=== PATIENT | male | born 1950 | race Caucasian/White ===

== ENCOUNTER → 2016-10-07 | Outpatient (REF) | payer BC ==
[2016-10-07 14:01] LABS: MEAN CORPUSCULAR HEMOGLOBIN 32.8 pg (27.0-33.0); MEAN CORPUSCULAR HGB CONC 33.5 g/dl (32.0-36.5); MEAN CORPUSCULAR VOLUME 97.8 fl (80.0-96.0); RED CELL DISTRIBUTION WIDTH 12.8 % (11.5-14.5); WHITE BLOOD COUNT 6.4 K/mm3 (4.0-10.0)
[2016-10-07 14:11] LABS: ALBUMIN 3.7 GM/DL (3.2-5.2); ALBUMIN/GLOBULIN RATIO 1.23 (1.00-1.93); ALKALINE PHOSPHATASE 55 U/L (45-117); ALT/SGPT 32 U/L (12-78); ANION GAP 7 MEQ/L (8-16); AST/SGOT 16 U/L (15-37); BILIRUBIN,TOTAL 1.5 MG/DL (0.2-1.0); BLOOD UREA NITROGEN 14 MG/DL (7-18); CALCIUM LEVEL 8.9 MG/DL (8.8-10.2); CARBON DIOXIDE LEVEL 28 MEQ/L (21-32); CHLORIDE LEVEL 106 MEQ/L (98-107); CHOLESTEROL LEVEL 160 MG/DL (<200); CREATININE FOR GFR 0.93 MG/DL (0.70-1.30); GLOMERULAR FILTRATION RATE > 60.0 (>49); GLUCOSE, FASTING 98 MG/DL (80-110); POTASSIUM SERUM 4.4 MEQ/L (3.5-5.1); SODIUM LEVEL 141 MEQ/L (136-145); TOTAL PROTEIN 6.7 GM/DL (6.4-8.2); TRIGLYCERIDES LEVEL 114 MG/DL (<150)
== END ==
LOC: M LABDRAW1 13:10
PROVIDERS: ATTEND Nurse Practitioner Family
DX: I10 Essential (primary) hypertension (principal); E78.00 Pure hypercholesterolemia, unspecified; R73.9 Hyperglycemia, unspecified

== ENCOUNTER → 2016-11-03 | Outpatient (CLI) | payer BC | LOC: M WUC 09:54 | PROVIDERS: ATTEND Physician Assistant | DX: M25.511 Pain in right shoulder (principal) ==

== ENCOUNTER → 2017-09-21 | Outpatient (REF) | payer BC ==
[2017-09-21 16:19] LABS: BASO # 0.1 10^3/uL (0.0-0.2); BASO % 0.7 % (0.0-1.0); EOS # 0.2 10^3/uL (0.0-0.50); EOS % 2.7 % (0.0-3.0); HEMATOCRIT 46.4 % (42.0-52.0); HEMOGLOBIN 15.8 g/dl (13.5-17.5); IMMATURE GRANULOCYTE % 0.3 % (0-3.0); LYMPH # 1.9 10^3/uL (1.5-4.5); LYMPH % 27.4 % (24.0-44.0); MEAN CORPUSCULAR HEMOGLOBIN 31.4 pg (27.0-33.0); MEAN CORPUSCULAR HGB CONC 34.1 g/dl (32.0-36.5); MEAN CORPUSCULAR VOLUME 92.2 fl (80.0-96.0); MONO # 0.6 10^3/uL (0.0-0.8); MONO % 9.2 % (0.0-5.0); NEUTROPHILS # 4.1 10^3/uL (1.8-7.7); NEUTROPHILS % 59.7 % (36.0-66.0); PLATELET COUNT, AUTOMATED 150 10^3/uL (150-450); RED BLOOD COUNT 5.03 10^6/uL (4.30-6.10); WHITE BLOOD COUNT 6.9 10^3/uL (4.0-10.0)
[2017-09-21 17:06] LABS: ALBUMIN 3.5 GM/DL (3.2-5.2); ALBUMIN/GLOBULIN RATIO 1.09 (1.00-1.93); ALKALINE PHOSPHATASE 62 U/L (45-117); ALT/SGPT 29 U/L (12-78); ANION GAP 10 MEQ/L (8-16); AST/SGOT 13 U/L (7-37); BLOOD UREA NITROGEN 15 MG/DL (7-18); C REACTIVE PROTEIN QUANTITATIV 0.38 MG/DL (0.00-0.30); CALCIUM LEVEL 8.6 MG/DL (8.8-10.2); CARBON DIOXIDE LEVEL 23 MEQ/L (21-32); CHLORIDE LEVEL 108 MEQ/L (98-107); CHOLESTEROL LEVEL 165 MG/DL (<200); GLOMERULAR FILTRATION RATE > 60.0 (>49); GLUCOSE, FASTING 126 MG/DL (70-100); HDL CHOLESTEROL 44 MG/DL (>40); LDL CHOLESTEROL 63.6 MG/DL (<100); NON-HDL-C 121 MG/DL; POTASSIUM SERUM 3.9 MEQ/L (3.5-5.1); SODIUM LEVEL 141 MEQ/L (136-145); TOTAL PROTEIN 6.7 GM/DL (6.4-8.2); TRIGLYCERIDES LEVEL 287 MG/DL (<150)
== END ==
LOC: M LABDRAW1 14:55
DX: R06.00 Dyspnea, unspecified (principal); E66.9 Obesity, unspecified; R07.1 Chest pain on breathing
CPT/HCPCS: 80053

== ENCOUNTER → 2018-12-29 | Outpatient (CLI) | payer BC ==
--- NOTE | 2018-12-29 12:28 | ECHO ---
OUTPATIENT ECHOCARDIOGRAPHIC REPORT: DATE OF PROCEDURE: 12/29/2018 DATE OF : 1950 AGE: 68 GENDER: Male HEIGHT: 70 inches WEIGHT: 225 pounds BODY SURFACE AREA: 2.19 m2 OUTPATIENT: REFERRING PHYSICIAN: Dr. Jace Gabriel INDICATION: Murmur. MEASUREMENTS: 2-D Measurements: RV: 3.1 cm LV: 4.9 cm Septum: 1.2 cm Posterior wall: 1.1 cm Aortic root: 3.3 cm LA: 4.2 cm LVEF: 65% Doppler Measurements: AV: 2.53 m/s LVOT: 1.38 m/s Mean AV systolic gradient: 13 mmHg Dimensionless index: 0.5 MV: E 86, A 60, EA ratio 1.4 Early mitral deceleration time: 169 ms E prime: 8.1, A prime: 7.1, E/E prime ratio: 10.6 PCWP: 14.4 mmHg PV: 0.8 m/s Pulmonary artery acceleration time: 130 ms RVSP: 26 mmHg IVC: 2.0 cm with adequate respiratory collapse COMMENTS: Normal sinus rhythm with right bundle branch block. M-mode and two-dimensional echocardiography was performed with pulsed, continuous wave, color flow and tissue Doppler studies. Normal left ventricular size with wall thickness upper limits of normal and normal wall motion. Slightly dilated left atrium but currently normal Doppler assessment of LV diastolic function and estimated mean left atrial pressure. Normal right heart chamber sizes and motion with normal pulmonary arterial pressure. Normal IVC size and collapse against an elevated central venous pressure. Moderate aortic valvular sclerosis with no more than marginal stenosis and mild insufficiency. Normal aortic dimensions. Normal appearing mitral valvular apparatus and leaflet excursion with no posterior systolic buckling. No significant functional abnormality. Normal appearing tricuspid valve with trace insufficiency. No apparent intracardiac mass or pericardial effusion.
== END ==
LOC: M CARPUL 09:01
PROVIDERS: ATTEND Surgery
DX: R01.1 Cardiac murmur, unspecified (principal)

== ENCOUNTER 2022-07-07 09:52 | Observation (INO) | payer BC, MEDICARE ==
[~2022-07-07] VITALS: Ht 177.8 cm; Wt 100.7 kg
[2022-07-07] MEDS ORDERED: FLUT11IN INH (10:00)
[2022-07-07] MEDS ORDERED: PRAV40TA2 PO (10:00)
[2022-07-07] MEDS ORDERED: ALBU8.5H INH (10:00)
[2022-07-07] MEDS ORDERED: OXYB-54 PO (10:00)
[2022-07-07] MEDS ORDERED: IRBE150T7 PO (10:00)
[2022-07-07 10:49] LABS: BASO # 0.1 10^3/uL (0.0-0.2); BASO % 0.7 % (0.0-1.0); EOS # 0.2 10^3/uL (0.0-0.5); EOS % 2.6 % (0.0-3.0); HEMATOCRIT 44.8 % (42.0-52.0); HEMOGLOBIN 15.2 g/dl (13.5-17.5); LYMPH # 1.6 10^3/uL (1.5-5.0); MEAN CORPUSCULAR HEMOGLOBIN 31.9 pg (27.0-33.0); MEAN CORPUSCULAR HGB CONC 33.9 g/dl (32.0-36.5); MEAN CORPUSCULAR VOLUME 94.1 fl (80.0-96.0); MONO # 0.8 10^3/uL (0.0-0.8); MONO % 11.5 % (2.0-8.0); NEUTROPHILS # 4.4 10^3/uL (1.5-8.5); NEUTROPHILS % 61.8 % (36.0-66.0); PLATELET COUNT, AUTOMATED 137 10^3/uL (150-450); RED BLOOD COUNT 4.76 10^6/uL (4.30-6.10); WHITE BLOOD COUNT 7.1 10^3/uL (4.0-10.0)
[2022-07-07 11:05] LABS: INR 0.95; PARTIAL THROMBOPLASTIN TIME 27.4 SECONDS (24.8-34.2); PROTHROMBIN TIME 12.9 SECONDS (12.5-14.5)
[2022-07-07 11:13] LABS: LIPASE 39 U/L (12-53)
[2022-07-07 11:16] LABS: ALBUMIN 3.6 G/DL (3.2-5.2); ALKALINE PHOSPHATASE 44 U/L (46-116); ALT/SGPT 28 U/L (7.0-40); AST/SGOT 25 U/L (<34); BILIRUBIN,DIRECT 0.4 MG/DL (<0.4); BILIRUBIN,TOTAL 1.2 MG/DL (0.3-1.2); BLOOD UREA NITROGEN 16 MG/DL (9-23); CALCIUM LEVEL 8.6 MG/DL (8.3-10.6); CARBON DIOXIDE LEVEL 27 MMOL/L (20-31); CHLORIDE LEVEL 108 MMOL/L (98-107); CREATININE FOR GFR 0.79 MG/DL (0.70-1.30); GLOMERULAR FILTRATION RATE > 60.0 (>49); GLUCOSE, FASTING 101 MG/DL (74-106); POTASSIUM SERUM 4.9 MMOL/L (3.5-5.1); SODIUM LEVEL 139 MMOL/L (136-145); TOTAL PROTEIN 6.3 G/DL (5.7-8.2)
[2022-07-07 11:17] LABS: FREE T4 1.27 NG/DL (0.89-1.76)
[2022-07-07 11:18] LABS: THYROID STIMULATING HORMONE 0.876 uIU/ML (0.55-4.78)
[2022-07-07 11:21] LABS: CPK CREATINE PHOSPHOKINASE 218 U/L (46-171); MB/CK RELATIVE INDEX 1.37 (< OR =4)
[2022-07-07 11:35] LABS: RSV AMPLIFICATION NEGATIVE (NEGATIVE)
[2022-07-07 12:20] LABS: MB/CK RELATIVE INDEX 1.44 (< OR =4)
[2022-07-07] MEDS ORDERED: FEXO-117 PO (13:32)
[2022-07-07] MEDS ORDERED: DICL1GEL3 TOP (13:32)
[2022-07-07] MEDS ORDERED: ALEV220T22 PO (13:32)
[2022-07-07] MEDS ORDERED: HOME MED LIST COMPLETE! XX SCH (13:35)
[2022-07-07] MEDS ORDERED: ALBUTEROL 90 MCG/ACT 8GM HFA INHALER INH PRN (15:45)
[2022-07-07] MEDS: ENOXAPARIN 40MG/0.4ML SYRINGE (J1650 PER 10MG) SC SCH (16:57)
[2022-07-07] MEDS: IRBESARTAN 150MG TAB PO SCH (16:58)
[2022-07-07] MEDS: PRAVASTATIN 20 MG TAB PO SCH (16:58)
[2022-07-07] MEDS: oxyBUTYnin *DITROPAN XL* 5 MG TABCR PO SCH (16:58)
[2022-07-07 18:29] VITALS: BP 142/60
[2022-07-07] MEDS: FLUTICASONE HFA 110MCG 12GM INHALER (FLOVENT) INH SCH (19:01)
[2022-07-07 20:35] VITALS: BP 133/58
[2022-07-07] MEDS ORDERED: SODIUM CHLORIDE NASAL 0.65% SPRAY BTL (OCEAN) PRN (20:40)
[2022-07-08 00:09] VITALS: BP 159/72
[2022-07-08 04:20] VITALS: BP 139/61
[2022-07-08 05:52] LABS: ALBUMIN 3.4 G/DL (3.2-5.2); ALKALINE PHOSPHATASE 42 U/L (46-116); ALT/SGPT 25 U/L (7.0-40); AST/SGOT 17 U/L (<34); BILIRUBIN,TOTAL 1.3 MG/DL (0.3-1.2); BLOOD UREA NITROGEN 14 MG/DL (9-23); CALCIUM LEVEL 8.5 MG/DL (8.3-10.6); CARBON DIOXIDE LEVEL 24 MMOL/L (20-31); CHLORIDE LEVEL 107 MMOL/L (98-107); CREATININE FOR GFR 0.78 MG/DL (0.70-1.30); GLOMERULAR FILTRATION RATE > 60.0 (>49); GLUCOSE, FASTING 110 MG/DL (74-106); POTASSIUM SERUM 4.3 MMOL/L (3.5-5.1); SODIUM LEVEL 138 MMOL/L (136-145); TOTAL PROTEIN 5.7 G/DL (5.7-8.2)
[2022-07-08 07:47] VITALS: BP 110/60
[2022-07-08] MEDS: FLUTICASONE HFA 110MCG 12GM INHALER (FLOVENT) INH SCH (08:01)
[2022-07-08 08:54] VITALS: BP 110/60
[2022-07-08] MEDS: IRBESARTAN 150MG TAB PO SCH (08:54)
[2022-07-08] MEDS: PRAVASTATIN 20 MG TAB PO SCH (08:55)
[2022-07-08] MEDS: oxyBUTYnin *DITROPAN XL* 5 MG TABCR PO SCH (08:55)
[2022-07-08] MEDS ORDERED: FEXOFENADINE 60MG TAB PO SCH (09:00)
[2022-07-08] MEDS: ENOXAPARIN 40MG/0.4ML SYRINGE (J1650 PER 10MG) SC SCH (09:00)
== END 2022-07-08 10:18 | disposition home or self-care (01) ==
LOC: M ED 09:52 → M ED INP 14:26 → M PCU 18:29
PROVIDERS: ADMIT Internal Medicine; ATTEND Internal Medicine
DX: I49.8 Other specified cardiac arrhythmias (principal); R00.1 Bradycardia, unspecified; I45.10 Unspecified right bundle-branch block; I35.0 Nonrheumatic aortic (valve) stenosis; I10 Essential (primary) hypertension; J45.909 Unspecified asthma, uncomplicated; J44.9 Chronic obstructive pulmonary disease, unspecified; N39.41 Urge incontinence; E78.5 Hyperlipidemia, unspecified; G47.33 Obstructive sleep apnea (adult) (pediatric); R42 Dizziness and giddiness; Z87.891 Personal history of nicotine dependence; Z88.1 Allergy status to other antibiotic agents; Z79.899 Other long term (current) drug therapy; Z79.1 Long term (current) use of non-steroidal anti-inflammatories (NSAID); Z82.49 Family history of ischemic heart disease and other diseases of the circulatory system
CPT/HCPCS: 36415; 71045; 80048; 80053; 80076; 82550; 82553; 83690; 83735; 83880; 84439; 84443; 84484; 85025; 85610; 85730; 87631; 93005; 93041; 93306; 94640; 94760; 96372; 99285; G0378; J1650

== ENCOUNTER → 2023-12-23 | Outpatient (CLI) | payer MEDICARE ==
[~2023-12-23] MED LIST: ALBU8.5H INH; ALEV220T22 PO; DICL100G10 TOP; FEXO-117 PO; FLUT12AE6 INH; IRBE150T27 PO; OXYB-54 PO; PRAV40TA2 PO
== END ==
LOC: M RAD 08:24
PROVIDERS: ATTEND Nurse Practitioner Adult Health
DX: Z87.891 Personal history of nicotine dependence (principal)

== ENCOUNTER 2024-02-03 10:08 | Day surgery (SDC) | payer MEDICARE ==
[~2024-02-03] VITALS: Ht 177.8 cm; Wt 104.8 kg
[~2024-02-03 10:08] MED LIST changes: +ALLO100T PO; +BUDE10.22 INH; +CETI10CH PO; +TERA2CAP3 PO
[2024-02-03] MEDS ORDERED: propofoL 200 MG/20 ML VIAL As Ordered ONE (11:37)
[2024-02-03] MEDS ORDERED: LIDOCAINE 2% 100MG/5ML SDV (FOR ANES.) As Ordered ONE (11:37)
[2024-02-03 11:57] VITALS: TEMP 97.2
[2024-02-03 12:12] VITALS: BP 124/66; O2SAT 95
[2024-02-03] MEDS ORDERED: fentaNYL 100 MCG/2 ML INJECTION As Ordered ONE (12:38)
== END 2024-02-03 12:15 | disposition home or self-care (01) ==
LOC: M OPP 10:08
PROVIDERS: ATTEND Internal Medicine Gastroenterology
DX: D12.0 Benign neoplasm of cecum (principal); D12.5 Benign neoplasm of sigmoid colon; K64.0 First degree hemorrhoids; K57.30 Diverticulosis of large intestine without perforation or abscess without bleeding; Z90.49 Acquired absence of other specified parts of digestive tract; I10 Essential (primary) hypertension; J44.89 Other specified chronic obstructive pulmonary disease; R00.1 Bradycardia, unspecified; G47.30 Sleep apnea, unspecified; Z79.899 Other long term (current) drug therapy; Z95.0 Presence of cardiac pacemaker; Z90.89 Acquired absence of other organs; Z87.891 Personal history of nicotine dependence
CPT/HCPCS: 45385; 88305; J3010

== ENCOUNTER → 2024-07-11 | Outpatient (CLI) | payer MEDICARE ==
[~2024-07-11] MED LIST changes: -FEXO-117 PO; +FEXO-193 PO
== END ==
LOC: M PLAIMG 16:13
DX: M19.141 Post-traumatic osteoarthritis, right hand (principal)

== ENCOUNTER → 2024-07-28 | Outpatient (CLI) | payer MEDICARE | LOC: M PLAIMG 07:29 | PROVIDERS: ATTEND Nurse Practitioner Adult Health | DX: R91.8 Other nonspecific abnormal finding of lung field (principal); Z95.0 Presence of cardiac pacemaker ==